=== PATIENT | female | born 1955 | race Caucasian/White ===

== ENCOUNTER 2016-06-14 20:16 | Emergency (ER) | payer OTHER ==
[2016-06-14] MEDS ORDERED: HYDROMORPHONE HCL 1 MG/ML SYRINGE ONE ×2 (21:03→22:03)
--- NOTE | 2016-06-16 07:55 | CT ---
TEMPORAL BONE CT WITHOUT CONTRAST HISTORY: Intermittent otalgia. No intravenous contrast administered. Contiguous axial images acquired through the temporal bones. COMPARISON: None. MASTOID AIR CELLS: Grossly clear. EXTERNAL AUDITORY CANAL: Minimal asymmetric soft tissue thickening on the left without associated osseous erosion. TYMPANIC CAVITIES: Unremarkable. OSSICULAR CHAINS: Intact with an unremarkable appearance. INNER EAR STRUCTURES: Unremarkable. TEGMENTAL DEHISCENCE: None. INTERNAL AUDITORY CANALS: Grossly symmetric, nonenlarged appearance. VESTIBULAR AQUEDUCTS: Non-dilated. FACIAL NERVE CANALS: Grossly intact. PARANASAL SINUSES: Post procedure change, correlate for partial inferior turbinectomies. INTRACRANIAL COMPARTMENT: No obvious mass effect. IMPRESSION: Minor soft tissue thickening along the left external auditory canal, residua of external otitis is possible. However, no associated osseous erosion is noted. Otherwise unremarkable noncontrast CT appearance of the temporal bones. Preliminary report relayed to the Emergency Medicine medical service by Dr. Manzanares on 06/14/2016 at 2151 hours.
== END 2016-06-14 23:05 | disposition home or self-care (01) ==
LOC: ED 20:16
DX: H60.92 Unspecified otitis externa, left ear (principal); H61.22 Impacted cerumen, left ear
CPT/HCPCS: 70480; 99283 ×2; 96372 ×2; J1170 ×2